=== PATIENT | male | born 1980 | race Caucasian/White ===

== ENCOUNTER 2016-11-24 16:16 | Emergency (ER) | payer OTHER ==
--- NOTE | ~2016-11-24 | CR253 ---
[facility] A Service of [facility] & [facility] RADIOLOGY TEXT RESULTS PATIENT: LORI VARGAS LOCATION: [facility] : 84 UNIT #: [id number] AGE: [address]: Vangie Roman SEX: M ORDER DR: [id number] [facility] [address] [place], [place] [address] [id number] E MR#: [id number] Acc #: [id number] NAME: LORI VARGAS : 1980 SEX: M STUDY DATE/TIME: 11/24/2016 15:20 UNIT: [facility] ROOM: STUDY DESCRIPTION: CR Tibia and Fibula 2 Views Rt Attending Physician: Vangie Roman P.A.-C. Ordering Physician: Vangie Roman P.A.-C. Primary Care Physician: No Primary Care Physician MEDICAL IMAGING REPORT This report is preliminary unless electronic signature is present EXAM Tib-fib series on the right, 11/24/2016 INDICATIONS 35-year-old male with a history of trauma, fell today, pain in the tib-fib and ankle on the right. TECHNIQUE 2 views of the right tib-fib. No comparisons. FINDINGS There is soft tissue swelling laterally about the distal fibula. No acute fracture. IMPRESSION 1. Lateral soft tissue swelling about the distal fibula otherwise negative Dictated by... Baldemar Donaldson M.D. THIS IS AN ELECTRONICALLY VERIFIED REPORT Baldemar Donaldson M.D. at 11/24/2016 5:33 PM BENNIE/patsy TD: 11/24/2016 17:22 JOB #: [id number] MEDICAL IMAGING REPORT Page 1 of 1 COPY
--- NOTE | ~2016-11-24 | CR21 ---
[facility] A Service of [facility] RADIOLOGY TEXT RESULTS PATIENT: LORI VARGAS LOCATION: [facility] : 82 UNIT #: [id number] AGE: [address]: Vangie Roman SEX: M ORDER DR: [id number] [place] [id number] [place], [place] [address] [id number] E MR#: [id number] Acc #: [id number] NAME: LORI VARGAS : 1980 SEX: M STUDY DATE/TIME: 11/24/2016 15:23 UNIT: [facility] ROOM: STUDY DESCRIPTION: CR Ankle Min 3 Views Rt Attending Physician: Vangie Roman P.A.-C. Ordering Physician: Vangie Roman P.A.-C. Primary Care Physician: Radha Primary Care Physician MEDICAL IMAGING REPORT This report is preliminary unless electronic signature is present EXAM Right ankle, 11/24/2016. INDICATION 35-year-old male with a history of trauma, fell today, and has pain in the ankle. TECHNIQUE 3 views of the right ankle. COMPARISON STUDIES No comparisons FINDINGS There is lateral soft tissue swelling about the distal fibula. No underlying fracture. Ankle mortise intact. IMPRESSION Distal lateral soft tissue swelling. Otherwise, negative. Dictated by... Baldemar Donaldson M.D. THIS IS AN ELECTRONICALLY VERIFIED REPORT Baldemar Donaldson M.D. at 11/24/2016 5:32 PM BENNIE/nakul TD: 11/24/2016 17:27 JOB #: [id number] MEDICAL IMAGING REPORT [facility] A Service of [facility] RADIOLOGY TEXT RESULTS PATIENT: LORI VARGAS LOCATION: [facility] : 84 UNIT #: [id number] AGE: [address]: Vangie Roman SEX: M ORDER DR: Page 1 of 1 COPY
== END 2016-11-24 16:41 | disposition home or self-care (01) ==
LOC: CFTX 16:16
DX: S93.491A Sprain of other ligament of right ankle, initial encounter (principal); F17.210 Nicotine dependence, cigarettes, uncomplicated; W18.00XA Striking against unspecified object with subsequent fall, initial encounter; Y92.009 Unspecified place in unspecified non-institutional (private) residence as the place of occurrence of the external cause
CPT/HCPCS: 29515; 73590; 73610; 99284